=== PATIENT | female | born 1975 | race Native Hawaiian/Other Pacific Islander ===

== ENCOUNTER 2018-02-03 08:38 | Outpatient (CLI) | payer BC | END 2018-02-03 22:21 | disposition home or self-care (01) | LOC: MAMMO 08:38 | DX: Z12.31 Encounter for screening mammogram for malignant neoplasm of breast (principal) ==

== ENCOUNTER 2019-12-16 10:57 | Outpatient (CLI) | payer BC | END 2019-12-16 20:05 | disposition home or self-care (01) | LOC: MAMMO 10:57 | DX: Z12.31 Encounter for screening mammogram for malignant neoplasm of breast (principal) ==

== ENCOUNTER 2020-04-29 07:16 | Outpatient (CLI) | payer BC ==
[2020-04-29 09:20] LABS: PLATELET COUNT 269 K/uL (152-353)
[2020-04-29 09:29] LABS: POTASSIUM 4.1 mmol/L (3.6-5.2)
== END 2020-04-29 22:25 | disposition home or self-care (01) ==
LOC: LABW 07:16
PROVIDERS: ATTEND Surgery Plastic and Reconstructive Surgery
DX: Z01.818 Encounter for other preprocedural examination (principal)
CPT/HCPCS: 80053; 81000; 85027; 93005

== ENCOUNTER 2020-12-29 12:30 | Outpatient (CLI) | payer BC | END 2020-12-29 19:56 | disposition home or self-care (01) | LOC: MAMMO 12:30 | PROVIDERS: ATTEND Obstetrics & Gynecology | DX: Z12.31 Encounter for screening mammogram for malignant neoplasm of breast (principal) ==

== ENCOUNTER 2021-12-31 11:15 | Outpatient (CLI) | payer BC | END 2021-12-31 20:51 | disposition home or self-care (01) | LOC: MAMMO 11:15 | PROVIDERS: ATTEND Physician Assistant Medical | DX: Z12.31 Encounter for screening mammogram for malignant neoplasm of breast (principal) ==

== ENCOUNTER 2022-09-15 21:08 | Emergency (ER) | payer BC ==
[~2022-09-15] VITALS: Ht 167.6 cm; Wt 72.6 kg
[2022-09-15 21:08] VITALS: TEMP 98.1
[2022-09-15 21:35] LABS: PLATELET COUNT 325 K/uL (152-353)
[2022-09-15 21:42] LABS: POTASSIUM 3.2 mmol/L (3.6-5.2)
[2022-09-15 21:51] LABS: PARTIAL THROMBOPLASTIN TIME 36.6 SECONDS (23.9-36.7)
[2022-09-15 23:35] VITALS: BP 95/67
== END 2022-09-15 23:35 | disposition home or self-care (01) ==
LOC: ED 21:08
PROVIDERS: Family Medicine
DX: I47.1 Supraventricular tachycardia (principal); E87.6 Hypokalemia; F17.290 Nicotine dependence, other tobacco product, uncomplicated; I49.9 Cardiac arrhythmia, unspecified
CPT/HCPCS: 36415; 80053; 82550; 84484; 85027; 85610; 85730; 93005; 96361; 96374; 96375; 96376; 99284; J2060; J7120